=== PATIENT | female | born 1990 | race Two or more races ===

== ENCOUNTER 2023-06-04 23:15 | Emergency (ER) | payer OTHER ==
[~2023-06-04] VITALS: Ht 162.6 cm; Wt 68.0 kg
[2023-06-04] MEDS ORDERED: OMEPRAZOLE MAGN20 MG PO (23:58)
[2023-06-04] MEDS ORDERED: ZOLOFT20 MG/1 ML PO (23:58)
== END 2023-06-05 | disposition left against medical advice (07) ==
LOC: ER 23:15
DX: Z53.21 Procedure and treatment not carried out due to patient leaving prior to being seen by health care provider (principal)